=== PATIENT | female | born 1975 ===

== ENCOUNTER 2017-09-19 22:36 | Emergency (ER) | payer OTHER ==
[2017-09-19 22:46] VITALS: TEMP 98.8
[2017-09-19] MEDS ORDERED: IBUPROFEN 600 MG TAB PO ONE (23:09)
--- NOTE | 2017-09-19 23:12 | EDPHY ---
H & P Stated Complaint: c/o L lower back pain today, recent uti, concerned possibly related Time Seen by Provider: 09/19/17 22:58 HPI/ROS: Chief Complaint: Back pain HPI: 42-year-old woman presenting with low back pain which has been worsening over the course of the day. Is aching in nature. It is worse on the left hand side. She was treated for urinary tract infection earlier this month and is concerned might be related. She has also had a cough the last 3-4 days which has been dry. No fevers or chills. No urinary urgency or frequency. No numbness or weakness. She is ambulating without difficulty. She has taken NyQuil at home with her only medication without any significant relief. Does not have a history of similar back pain in the past. At worst is about a 3 or 4 /10. ROS: 10 point Review of Systems is negative except as noted in the HPI. PMH: Denies Social History: No smoking, rare alcohol, occasional marijuana Family History: non-contributory Physical Exam: Gen: Awake, Alert, No Distress HEENT: Nose: no rhinorrhea Eyes: PERRLA, EOMI Mouth: Moist mucosa Neck: Supple, no JVD Chest: nontender, lungs clear to auscultation Heart: S1, S2 normal, no murmur Abd: Soft, non-tender, no guarding Back: no CVA tenderness, no midline tenderness moderate left lower lumbar paraspinal soft tissue tenderness reproducing her presenting complaint Ext: no edema, non-tender Skin: no rash Neuro: CN II-XII intact, Sensation grossly intact, Strength 5/5 in bilateral upper and lower extremities - Medical/Surgical History Hx Asthma: No Hx Chronic Respiratory Disease: No Hx Diabetes: No Hx Cardiac Disease: No Hx Renal Disease: No Hx Cirrhosis: No Hx Alcoholism: No Hx HIV/AIDS: No Hx Splenectomy or Spleen Trauma: No Other PMH: R patellar relocation - Social History Smoking Status: Former smoker Constitutional: Initial Vital Signs Temperature (C) 37.1 C 09/19/17 22:42 Heart Rate 87 09/19/17 22:42 Respiratory Rate 16 09/19/17 22:42 Blood Pressure 106/77 09/19/17 22:42 O2 Sat (%) 95 09/19/17 22:42 O2 Delivery Mode Room Air Allergies/Adverse Reactions: penicillin V potassium [From Pen-Vee K] Allergy (Severe, Verified 09/19/17 22:47 ) Anaphylaxis bee venom protein (honey bee) Allergy (Verified 09/19/17 22:47) Home Medications: Medication Instructions Recorded Mucinex 09/19/17 Nyquil 09/19/17 Medical Decision Making - Diagnostics Imaging Results: Imaging Impressions Chest X-Ray 09/19/17 23:08 Impression: Prominence of perihilar interstitial markings and peribronchial cuffing. Findings are nonspecific but can be seen with bronchitis, reactive airway disease, or viral process. Imaging: I viewed and interpreted images myself ED Course/Re-evaluation: 6-year-old with back pain. Urinalysis is negative. Chest x-ray shows probably a viral process. She has reproducible pain. There are no red flags for acute infectious or neurologic emergency. Will discharge with follow-up with primary care physician as an outpatient. - Data Points Laboratory Results: 09/19/17 23:00 Urine Color YELLOW Urine Appearance CLEAR Urine pH 6.0 (5.0-7.5) Ur Specific [place] 1.021 (1.002-1.030) Urine Protein NEGATIVE (NEGATIVE) Urine Ketones NEGATIVE (NEGATIVE) Urine Blood NEGATIVE (NEGATIVE) Urine Nitrate NEGATIVE (NEGATIVE) Urine Bilirubin NEGATIVE (NEGATIVE) Urine Urobilinogen NEGATIVE EU EU (0.2-1.0) Ur Leukocyte Esterase NEGATIVE (NEGATIVE) Urine Glucose NEGATIVE (NEGATIVE) Medications Given: Discontinued Medications Ibuprofen (Motrin) 600 mg PO EDNOW ONE Stop: 09/19/17 23:10 Last Admin: 09/19/17 23:25 Dose: 600 mg Departure - Departure Disposition: Home, Routine, Self-Care Clinical Impression: Back pain, Bronchitis Condition: Good Instructions: Lower Back Exercises (ED), Back Pain (ED), Acute Bronchitis (ED) Additional Instructions: Take ibuprofen, 600 mg, 3 times a day. You may also take acetaminophen, 1000 mg every 6 hours. Make sure to remain active. Did do not lay in bed or sit in a chair for long periods. It is important to remain active and keep your back moving in order to improve. Please see the attached back exercise instructions. Follow up with primary care physician in 2-3 days if symptoms are not improving. Return to the emergency depart for increasing pain, numbness, weakness, fevers, chills, or any other concerns. Referrals: Mariely Hathaway MD [Primary Care Provider] - As per Instructions
[2017-09-19 23:53] VITALS: BP 110/75; PULSE 75; RESP 18; O2SAT 98
== END 2017-09-20 00:13 | disposition home or self-care (01) ==
DX: M54.5 Low back pain (principal); J40 Bronchitis, not specified as acute or chronic; Z87.891 Personal history of nicotine dependence

== ENCOUNTER → 2017-09-25 | Outpatient (CLI) | payer OTHER | LOC: FIMAGING 12:03 | PROVIDERS: ATTEND Family Medicine | DX: M85.38 Osteitis condensans, other site (principal) ==

== ENCOUNTER → 2018-10-30 | Outpatient (CLI) | payer OTHER | LOC: BMCIMAGING 15:27 → MERGE 15:27 | PROVIDERS: ATTEND Family Medicine | DX: S92.511A Displaced fracture of proximal phalanx of right lesser toe(s), initial encounter for closed fracture (principal) ==

== ENCOUNTER 2018-12-03 14:49 | Emergency (ER) | payer OTHER ==
[2018-12-03] MEDS ORDERED: LIDOCAINE 4%/MENTHOL 1% PATCH TD ONE (15:40)
--- NOTE | 2018-12-03 15:47 | EDPHY ---
H & P Stated Complaint: Neck pain/Bilat numbness/tingling Time Seen by Provider: 12/03/18 15:35 HPI/ROS: HPI: This is a 43-year-old female presents with Chief Complaint: Posterior neck pain with bilateral radiculopathy Location: Posterior neck Quality: Pain and radiculopathy Duration: 2 hr Signs and Symptoms: No bleeding, + radiation, + numbness, no weakness, + tingling, no incontinence, + decreased range of motion, no swelling, + pain, no fever Timing: Acute, rapid onset Severity: Moderate to severe Context: Patient reports that approximately week ago she started to developed posterior neck discomfort. She was seen by her primary care provider and started on Flexeril for which he has been taking for approximately 3-4 days. She reports no improvement in her symptoms. Approximately 2 hr prior to arrival to the emergency room when she was getting ready for work, she started to developed bilateral hand numbness and tingling in all 5 of her fingers on both hands. She reports that she has radiation of pain from the right side of her posterior neck down into both of her arms. No known injury. does report that when she changes positions in bed she uses her "head as a fulcrum in order to move side to side." Denies LOC/head injury/neck pain/dizziness/ nausea/vomiting/amnesia. Modifying Factors: Flexeril, no relief Comment: ROS: A comprehensive 10 system review of systems is otherwise negative aside from elements mentioned in the history of present illness. MEDICAL/SURGICAL/SOCIAL HISTORY: Medical history: Generally healthy. Does not take any regular medications. Surgical history: Denies Social history: Employed. . Very active rock climber. CONSTITUTIONAL: Physically fit, well-developed, well-nourished adult white female, awake and alert, no obvious distress HEENT: Atraumatic and normocephalic. NECK: supple, mild lower C5 through C7 midline tenderness, right sided paraspinous muscles cervical spasm noted that has reproducible tenderness with palpation, flexion 45 degrees, extension 45 degrees, right and left lateral flexion 45 degrees. No meningismus. Cardiovascular: Normal S1/S2, regular rate, regular rhythm, without murmur rub or gallop. PULMONARY/CHEST: Symmetrical and nontender. Clear to auscultation bilaterally. Good air movement. No accessory muscle usage. ABDOMEN: Soft, nondistended, nontender. EXTREMITIES: 2/2 pulses, strength 5/5, DIP/PIP/MCP flexion/extension intact with good light touch sensation. no deformities, no clubbing, no cyanosis or edema. NEUROLOGICAL: no focal neuro deficits. GCS 15. Light touch sensation intact. SKIN: Warm and dry, no erythema. no rash. Good capillary refill. Source: Patient Exam Limitations: No limitations - Personal History LMP (Females 10-55): 8-14 Days Ago Current Tetanus/Diphtheria Vaccine: Yes - Medical/Surgical History Hx Asthma: No Hx Chronic Respiratory Disease: No Hx Diabetes: No Hx Cardiac Disease: No Hx Renal Disease: No Hx Cirrhosis: No Hx Alcoholism: No Hx HIV/AIDS: No Hx Splenectomy or Spleen Trauma: No Other PMH: R patellar relocation - Social History Smoking Status: Former smoker Constitutional: Initial Vital Signs Temperature (C) 36.6 C 12/03/18 14:56 Heart Rate 73 12/03/18 14:56 Respiratory Rate 16 12/03/18 14:56 Blood Pressure 115/67 12/03/18 14:56 O2 Sat (%) 98 12/03/18 14:56 O2 Delivery Mode Room Air Allergies/Adverse Reactions: bee venom protein (honey bee) Allergy (Verified 12/03/18 14:58) Penicillins Allergy (Verified 12/03/18 14:58) Home Medications: Medication Instructions Recorded Mucinex 09/19/17 Nyquil 09/19/17 methylPREDNISolone [Medrol Dose 1 each PO AD #1 ea 12/03/18 [place]] oxyCODONE/APAP 5/325 [Percocet 1 - 2 tab PO Q4H PRN #10 tab 12/03/18 5/325 (*)] Medical Decision Making - Diagnostics Imaging Results: Imaging Impressions Cervical Spine MRI 12/03/18 15:40 Impression: 1. Moderate-sized subligamentous disk protrusion at C5-C6, associated with bilateral neural foraminal stenosis. 2. Diffuse annular bulging at C6-C7, with moderate bilateral neural foraminal narrowing, left greater than right. Results called to Sangeeta Sellers PA-C, at 4:50 p.m. ED Course/Re-evaluation: Vital signs reviewed and stable upon arrival. Patient has midline tenderness with new onset of bilateral radiculopathy; MRI cervical ordered Patient is reluctant to take any pain medication or muscle relaxers that she drove herself to the emergency room. She is agreeable to Lidoderm patch. Called by Radiology who reports C5-C6 moderate disc herniation with bilateral foraminal neural stenosis and C6-C7 diffuse annular bulging. Patient given a prescription for Medrol Dosepak, Percocet and already has Flexeril. Referral to Neurosurgery. No signs of neurovascular compromise/tenting of skin/compartment syndrome/ extremities and joints examined above and below area of concern and are neurovascularly intact/cauda equina syndrome This patient was seen under the supervision of my primary supervising physician. I evaluated care for this patient with attending. Differential Diagnosis: Differential diagnosis includes but is not limited to cervical strain, cervical parent spinous muscle spasm, cervical disc herniation, cervical degenerative disc disease with radiation. Departure - Departure Disposition: Home, Routine, Self-Care Clinical Impression: Herniation of intervertebral disc at C5-C6 level, Cervical radiculopathy, Neural foraminal stenosis of cervical spine Condition: Good Instructions: Cervical Disc Herniation (ED), Cervical Radiculopathy (ED), Cervical Spinal Stenosis (ED) Additional Instructions: Take Medrol Dosepak as directed. Start taking today. Do not skip a dose. Take Tylenol 650 mg every 4 hours and/or Ibuprofen 600 mg every 8 hours with food as needed for pain. Use Percocet every 6 hours as needed for severe/break through pain. Do not use Tylenol and Percocet concomitantly. Continue to use Flexeril every 8 hr as needed for muscle spasms. Follow up with Neurosurgery in 7-10 days if symptoms persist at which time they will evaluate and recommend with you if conservative management versus further adjuvant therapy is indicated. Referrals: Mariely Hathaway MD [Primary Care Provider] - As per Instructions Guido Matthews MD [Medical Doctor] - As per Instructions Prescriptions: methylPREDNISolone [Medrol Dose [place]] 1 each PO AD #1 ea oxyCODONE/APAP 5/325 [Percocet 5/325 (*)] 1 - 2 tab PO Q4H PRN #10 tab PRN Reason: Pain, Severe
[2018-12-03 17:17] VITALS: BP 113/68
[2018-12-03] MEDS ORDERED: PATCH REMOVAL 1 EA PATCH TD SCH (21:00)
== END 2018-12-03 17:16 | disposition home or self-care (01) ==
DX: M50.222 Other cervical disc displacement at C5-C6 level (principal); M50.122 Cervical disc disorder at C5-C6 level with radiculopathy; M48.02 Spinal stenosis, cervical region; Z87.891 Personal history of nicotine dependence